=== PATIENT | male | born 1940 | race African-American/Black ===

== ENCOUNTER 2020-02-15 09:48 | Observation (INO) | payer MEDICARE ==
[~2020-02-15] VITALS: Ht 167.6 cm; Wt 73.0 kg
--- NOTE | 2020-02-15 09:54 | NUR ---
JOE BRENNAN [phone]
--- NOTE | 2020-02-15 09:58 | NUR ---
task RN note: pt biba with c/o n/v onset this am, denies pain at this time. transient left chest pain this am, now resolved. pt also notes intermittent blood in stool over last month. pt has hx prostate cancer now in remission, pt states last chemo was 14 months ago, no implanted radiation in place. 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 all monitors in place. EKG taken on arrival and reviewed by FELICE Rodriguez. pt dressed in gown, awaiting provider and orders.
--- NOTE | 2020-02-15 10:14 | NUR ---
report given to primary RN Drew.
--- NOTE | 2020-02-15 10:20 | NUR ---
PT GOING TO RAD AT THIS TIME
[2020-02-15] MEDS ORDERED: SODIUM CHLORIDE 0.9% 1,000ML IVBOLUS ONE (10:30)
[2020-02-15] MEDS ORDERED: ONDANSETRON 2MG/ML, 2ML IVPush ONE (10:30)
[2020-02-15] MEDS ORDERED: SODIUM CHLORIDE FLUSH 10ML SYR IVF ONE (10:30)
--- NOTE | 2020-02-15 11:44 | NUR ---
PT RESTING CALMLY IN BED. WILL CONTINUE TO MONITOR.
[2020-02-15 11:55] LABS: BASOPHILS % (AUTO) 0 % (0-1); EOSINOPHILS # (AUTO) 0.11 x10^3/uL (0-0.4); EOSINOPHILS % (AUTO) 2 % (1-7); LYMPHOCYTES # (AUTO) 0.33 x10^3/uL (1-3.4); LYMPHOCYTES % (AUTO) 7 % (22-44); MD NO; MEAN CORPUSCULAR HEMOGLOBIN 31.1 pg (27.5-34.5); MEAN CORPUSCULAR HGB CONC 32.7 g/dL (33.2-36.2); MEAN PLATELET VOLUME 7.8 fL (7.4-10.4); MONOCYTES # (AUTO) 0.24 x10^3/uL (0.2-0.8); MONOCYTES % (AUTO) 5 % (2-9); NEUTROPHILS # (AUTO) 4.39 x10^3/uL (1.8-6.8); NEUTROPHILS % (AUTO) 87 % (42-75); PLATELET COUNT 200 x10^3/uL (130-400); RED BLOOD COUNT 4.12 x10^6/uL (4.38-5.82); RED CELL DISTRIBUTION WIDTH 14.2 % (9.4-14.8)
[2020-02-15] MEDS ORDERED: ONDANSETRON 2MG/ML, 2ML ONE (11:56)
[2020-02-15] MEDS: PLEASE ENTER ALLERGIES MC SCH ×3 (12:00→19:17)
[2020-02-15] MEDS ORDERED: ASPI-515 PO (12:06)
[2020-02-15] MEDS ORDERED: LISI-170 PO (12:06)
[2020-02-15] MEDS ORDERED: AMLO-150 PO (12:06)
[2020-02-15 12:12] LABS: ALBUMIN 3.7 g/dL (3.4-5.0); ANION GAP 6 mmol/L (5-15); CALCIUM 8.8 mg/dL (8.5-10.1); CHLORIDE 114 mmol/L (98-107)
--- NOTE | 2020-02-15 12:13 | NUR ---
PT MEDICATED PER EMAR. IV FLUIDS DONE. AT BEDSIDE. PT USING URINAL AT BEDSIDE TO VOID. PT REPOSITIONED IN BED. WILL CONTINUE TO MONITOR.
[2020-02-15 12:19] LABS: ALANINE AMINOTRANSFERASE 23 U/L (12-78); ALKALINE PHOSPHATASE 95 U/L (45-117); BILIRUBIN,TOTAL 0.3 mg/dL (0.2-1.0); CREATININE 1.37 mg/dL (0.7-1.3); TOTAL PROTEIN 7.8 g/dL (6.4-8.2); TROPONIN I < 0.015 ng/mL (0.000-0.045)
--- NOTE | 2020-02-15 13:43 | NUR ---
REPORT GIVEN TO ALEX FRAUSTO FOR ROOM 484-1
[2020-02-15] MEDS ORDERED: SODIUM CHLORIDE 0.9% 1,000 ML IV SCH (14:28)
[2020-02-15 14:29] VITALS: BP 170/78
[2020-02-15] MEDS ORDERED: ONDANSETRON 2MG/ML, 2ML IVPush PRN (14:30)
[2020-02-15] MEDS ORDERED: ACETAMINOPHEN 325 MG TABLET PO PRN (14:30)
[2020-02-15] MEDS ORDERED: ONDANSETRON ODT 4 MG PO PRN (14:30)
[2020-02-15 18:42] LABS: TROPONIN I < 0.015 ng/mL (0.000-0.045)
[2020-02-15 20:01] VITALS: BP 152/71
[2020-02-15 20:04] VITALS: BP 155/68
[2020-02-15 20:06] VITALS: BP 149/78
[2020-02-15 21:31] LABS: MICROSCOPIC NOT IND
[2020-02-16 01:10] LABS: TROPONIN I < 0.015 ng/mL (0.000-0.045)
[2020-02-16 02:37] VITALS: BP 155/78
[2020-02-16 05:02] LABS: BASOPHILS # (AUTO) 0.01 x10^3/uL (0-0.1); BASOPHILS % (AUTO) 0 % (0-1); EOSINOPHILS # (AUTO) 0.21 x10^3/uL (0-0.4); EOSINOPHILS % (AUTO) 6 % (1-7); LYMPHOCYTES # (AUTO) 0.44 x10^3/uL (1-3.4); LYMPHOCYTES % (AUTO) 13 % (22-44); MD NO; MEAN CORPUSCULAR HEMOGLOBIN 31.7 pg (27.5-34.5); MEAN CORPUSCULAR HGB CONC 33.6 g/dL (33.2-36.2); MEAN PLATELET VOLUME 8.1 fL (7.4-10.4); MONOCYTES # (AUTO) 0.34 x10^3/uL (0.2-0.8); MONOCYTES % (AUTO) 10 % (2-9); NEUTROPHILS # (AUTO) 2.48 x10^3/uL (1.8-6.8); NEUTROPHILS % (AUTO) 71 % (42-75); PLATELET COUNT 207 x10^3/uL (130-400); RED BLOOD COUNT 3.93 x10^6/uL (4.38-5.82); RED CELL DISTRIBUTION WIDTH 14.4 % (9.4-14.8)
[2020-02-16 05:04] LABS: ANION GAP 5 mmol/L (5-15); CHLORIDE 111 mmol/L (98-107)
[2020-02-16 05:23] LABS: CHOL/HDL RATIO 3.9; CHOLESTEROL, TOTAL 151 mg/dL (140-239); HDL CHOL % 26 % (26-37); HDL CHOLESTEROL (DIRECT) 39 mg/dL (40-60); LDL CHOLESTEROL,CALCULATED 92 mg/dL (54-169); LDL/HDL RATIO 2.4 (0.5-3.0); TRIGLYCERIDES 98 mg/dL (50-200); VLDL CHOLESTEROL 20 mg/dL (0-25)
[2020-02-16 07:16] VITALS: BP 169/82
[2020-02-16 07:18] VITALS: BP 165/82
[2020-02-16 07:20] VITALS: BP 150/85
[2020-02-16] MEDS ORDERED: LISINOPRIL 20 MG TABLET PO SCH (09:00)
[2020-02-16] MEDS ORDERED: AMLODIPINE 5 MG TABLET PO SCH (09:00)
[2020-02-16] MEDS: PLEASE ENTER ALLERGIES MC SCH (10:02)
[2020-02-16 12:07] VITALS: BP 141/70
[2020-02-16] MEDS ORDERED: ATOR20TA37 PO (13:57)
[2020-02-16] MEDS ORDERED: ATORVASTATIN 20 MG TABLET PO SCH (21:00)
== END 2020-02-16 15:08 | disposition home or self-care (01) ==
LOC: ED 10:43 → EDIP 12:43 → INTOOBSV 12:43 → 4EST 14:03 → DCLOUNGE 02-16 15:04
PROVIDERS: ADMIT Family Medicine; ATTEND Family Medicine
DX: R55 Syncope and collapse (principal); I10 Essential (primary) hypertension; R73.9 Hyperglycemia, unspecified; C61 Malignant neoplasm of prostate; K92.2 Gastrointestinal hemorrhage, unspecified; I73.9 Peripheral vascular disease, unspecified; I65.23 Occlusion and stenosis of bilateral carotid arteries; Z79.899 Other long term (current) drug therapy; Z79.82 Long term (current) use of aspirin; Z92.3 Personal history of irradiation
CPT/HCPCS: 36415; 74022; 80048; 80053; 80061; 81003; 83036; 84443; 84484; 85025; 93005; 93306; 93880; 96361; 96374; 99285; G0378; J2405; J7030

== ENCOUNTER 2021-01-11 09:44 | Outpatient (CLI) | payer MEDICARE ==
[~2021-01-11 09:44] MED LIST: ALPR1TAB2 PO; AMLO-150 PO; ASPI-963 PO; ATOR20TA37 PO; LISI-170 PO
[2021-01-11] MEDS ORDERED: GADOTERATE 10 MMOL/20ML SYR ONE (17:56)
== END 2021-01-11 23:59 | disposition home or self-care (01) ==
LOC: RAD 09:44
PROVIDERS: ATTEND Psychiatry & Neurology Neurology
DX: I67.1 Cerebral aneurysm, nonruptured (principal); R41.3 Other amnesia; G31.9 Degenerative disease of nervous system, unspecified
CPT/HCPCS: 70544; 70553; A9575

== ENCOUNTER 2021-01-11 15:25 | Emergency (ER) | payer MEDICARE ==
[~2021-01-11] VITALS: Ht 170.2 cm; Wt 78.6 kg
--- NOTE | 2021-01-11 16:27 | NUR ---
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
[2021-01-11 18:23] LABS: BASOPHILS % (AUTO) 0 % (0-1); EOSINOPHILS % (AUTO) 5 % (1-7); LYMPHOCYTES % (AUTO) 18 % (22-44); MEAN CORPUSCULAR HGB CONC 33.9 g/dL (33.2-36.2); MEAN PLATELET VOLUME 8.2 fL (7.4-10.4); MONOCYTES % (AUTO) 15 % (2-9); NEUTROPHILS % (AUTO) 61 % (42-75); PLATELET COUNT 199 x10^3/uL (130-400); RED BLOOD COUNT 4.47 x10^6/uL (4.38-5.82)
--- NOTE | 2021-01-11 18:24 | NUR ---
PT RESTING ON ED NAD. [facility] VSS. PT DENIES DIZZINESS OR PAIN AT THIS TIME. SPOUSE BEDSIDE.
[2021-01-11 18:32] LABS: ALANINE AMINOTRANSFERASE 21 U/L (12-78); ALBUMIN 3.2 g/dL (3.4-5.0); ANION GAP 6 mmol/L (5-15); CALCIUM 8.3 mg/dL (8.5-10.1); CHLORIDE 112 mmol/L (98-107); CREATININE 1.57 mg/dL (0.7-1.3)
[2021-01-11 18:36] LABS: ALKALINE PHOSPHATASE 99 U/L (45-117); BILIRUBIN,TOTAL 0.3 mg/dL (0.2-1.0); TOTAL PROTEIN 7.3 g/dL (6.4-8.2); TROPONIN I < 0.015 ng/mL (0.000-0.045)
[2021-01-11 20:00] VITALS: BP 137/77
--- NOTE | 2021-01-11 20:06 | NUR ---
Patient given discharge instructions and they have confirmed that they understand the instructions. Patient ambulatory with steady gait. NAD, all questions answered appropriately, denies additional needs at this time. No personal belongings left in room after discharge.
== END 2021-01-11 20:19 | disposition home or self-care (01) ==
LOC: ED 15:55
DX: I67.1 Cerebral aneurysm, nonruptured (principal); R42 Dizziness and giddiness; I66.01 Occlusion and stenosis of right middle cerebral artery; I10 Essential (primary) hypertension
CPT/HCPCS: 36415; 80053; 84484; 85025; 93005; 99284